=== PATIENT | female | born 1965 | race Caucasian/White ===

== ENCOUNTER 2024-03-15 18:59 | Inpatient (IN) | payer OTHER ==
[~2024-03-15] VITALS: Ht 167.6 cm; Wt 51.5 kg
[2024-03-15] MEDS ORDERED: CARV25TA PO (19:15)
[2024-03-15] MEDS ORDERED: ESTR1TAB PO (19:15)
[2024-03-15] MEDS ORDERED: LISI40TA4 PO (19:15)
[2024-03-15] MEDS ORDERED: hctz (19:15)
[2024-03-15] MEDS: METOPROLOL 5 MG/5 ML VIAL IV SCH (20:08)
[2024-03-15 20:14] LABS: BASO # 0.1 10^3/uL (0.0-0.2); BASO % 0.7 % (0.0-1.0); EOS # 0.1 10^3/uL (0.0-0.5); HEMATOCRIT 36.1 % (36.0-47.0); HEMOGLOBIN 12.2 g/dl (12.0-15.5); LYMPH # 2.2 10^3/uL (1.5-5.0); LYMPH % 31.7 % (24.0-44.0); MEAN CORPUSCULAR HEMOGLOBIN 31.4 pg (27.0-33.0); MEAN CORPUSCULAR HGB CONC 33.8 g/dl (32.0-36.5); MEAN CORPUSCULAR VOLUME 92.8 fl (80.0-96.0); MONO # 0.5 10^3/uL (0.0-0.8); MONO % 6.8 % (2.0-8.0); NEUTROPHILS # 4.1 10^3/uL (1.5-8.5); NEUTROPHILS % 59.5 % (36.0-66.0); PLATELET COUNT, AUTOMATED 206 10^3/uL (150-450); RED BLOOD COUNT 3.89 10^6/uL (4.00-5.40); WHITE BLOOD COUNT 6.8 10^3/uL (4.0-10.0)
[2024-03-15 20:27] LABS: D-DIMER QUANT 0.37 ug/mL (<0.5); INR 1.02; PARTIAL THROMBOPLASTIN TIME 27.6 SECONDS (24.8-34.2); PROTHROMBIN TIME 13.1 SECONDS (12.5-14.5)
[2024-03-15 20:40] LABS: CK-MB VALUE MASS 2.6 NG/ML (<3.6)
[2024-03-15 20:43] LABS: ALBUMIN 3.6 G/DL (3.2-5.2); ALKALINE PHOSPHATASE 41 U/L (46-116); ALT/SGPT 19 U/L (7.0-40); AST/SGOT 19 U/L (<34); BILIRUBIN,DIRECT 0.1 MG/DL (<0.4); BILIRUBIN,TOTAL 0.4 MG/DL (0.3-1.2); BLOOD UREA NITROGEN 11 MG/DL (9-23); CALCIUM LEVEL 8.5 MG/DL (8.5-10.1); CARBON DIOXIDE LEVEL 27 MMOL/L (20-31); CHLORIDE LEVEL 103 MMOL/L (98-107); CREATININE FOR GFR 0.52 MG/DL (0.55-1.30); GLOMERULAR FILTRATION RATE > 60.0 (>51); GLUCOSE, FASTING 90 MG/DL (60-100); MAGNESIUM LEVEL 1.8 MG/DL (1.8-2.4); PHOSPHORUS LEVEL 2.7 MG/DL (2.5-4.9); POTASSIUM SERUM 3.4 MMOL/L (3.5-5.1); SODIUM LEVEL 139 MMOL/L (136-145); TOTAL PROTEIN 6.1 G/DL (5.7-8.2)
[2024-03-15 20:45] LABS: FREE T4 0.68 NG/DL (0.89-1.76); THYROID STIMULATING HORMONE 4.839 uIU/ML (0.55-4.78)
[2024-03-15 20:46] LABS: CPK CREATINE PHOSPHOKINASE 103 U/L (34-145); MB/CK RELATIVE INDEX 2.52 (< OR =4)
[2024-03-15] MEDS: POTASSIUM CHLORIDE 10MEQ SR TABLET PO ONE ×2 (21:37→23:56)
[2024-03-15] MEDS: METOPROLOL TARTRATE 100MG TAB PO ONE (21:37)
[2024-03-15] MEDS ORDERED: HYDR-3490 PO (23:45)
[2024-03-15] MEDS ORDERED: HOME MED LIST COMPLETE! XX SCH (23:50)
[2024-03-15] MEDS: APIXABAN 5 MG TAB (ELIQUIS) PO SCH (23:55)
[2024-03-15] MEDS: MAG SULF 1GM/100ML (MAG RUN) 1 GM in IV 1 EA IV SCH (23:55)
[2024-03-16 00:34] LABS: HEMOGLOBIN A1c 4.8 % (4.0-6.0)
[2024-03-16 00:49] LABS: CHOLESTEROL RISK RATIO 1.52 (<5); HDL CHOLESTEROL 87.6 MG/DL (>40); MAGNESIUM LEVEL 1.6 MG/DL (1.8-2.4); NON-HDL-C 46.4 MG/DL
[2024-03-16] MEDS: diltiaZEM 125 MG in NS 100 ML IV SCH ×2 (01:07→17:41)
[2024-03-16 06:31] LABS: HEMATOCRIT 36.7 % (36.0-47.0); HEMOGLOBIN 11.9 g/dl (12.0-15.5); MEAN CORPUSCULAR HEMOGLOBIN 30.9 pg (27.0-33.0); MEAN CORPUSCULAR HGB CONC 32.4 g/dl (32.0-36.5); MEAN CORPUSCULAR VOLUME 95.3 fl (80.0-96.0); PLATELET COUNT, AUTOMATED 215 10^3/uL (150-450); RED BLOOD COUNT 3.85 10^6/uL (4.00-5.40); WHITE BLOOD COUNT 5.4 10^3/uL (4.0-10.0)
[2024-03-16 06:52] LABS: BLOOD UREA NITROGEN 7 MG/DL (9-23); CALCIUM LEVEL 7.8 MG/DL (8.5-10.1); CARBON DIOXIDE LEVEL 28 MMOL/L (20-31); CHLORIDE LEVEL 107 MMOL/L (98-107); CREATININE FOR GFR 0.49 MG/DL (0.55-1.30); GLOMERULAR FILTRATION RATE > 60.0 (>51); GLUCOSE, FASTING 98 MG/DL (60-100); MAGNESIUM LEVEL 2.2 MG/DL (1.8-2.4); POTASSIUM SERUM 4.3 MMOL/L (3.5-5.1); SODIUM LEVEL 141 MMOL/L (136-145)
[2024-03-16 07:36] VITALS: BP 136/77; TEMP 96.7; O2SAT 99
[2024-03-16] MEDS ORDERED: CARVedilol 12.5 MG TAB PO SCH ×2 (09:00→21:00)
[2024-03-16] MEDS ORDERED: METOPROLOL TARTRATE 100MG TAB PO SCH (09:00)
[2024-03-16] MEDS ORDERED: ELIQ5TAB PO (11:46)
[2024-03-16] MEDS: CARVedilol 12.5 MG TAB PO STA (11:55)
[2024-03-16 11:57] VITALS: BP 145/83; TEMP 96.2; O2SAT 100
[2024-03-16] MEDS ORDERED: XARE20TA PO (14:58)
[2024-03-16 18:17] VITALS: BP 138/76; TEMP 97.5; O2SAT 99
[2024-03-16] MEDS: dilTIAZem 30 MG TAB PO SCH (18:37)
[2024-03-16 19:14] VITALS: BP 139/91; TEMP 97.9; O2SAT 98
[2024-03-16 20:00] VITALS: O2SAT 98
[2024-03-16 23:27] VITALS: BP 137/80; TEMP 97.5; O2SAT 97
[2024-03-17] MEDS: dilTIAZem 25MG/5ML VIAL IV STA (01:15)
[2024-03-17] MEDS: dilTIAZem 30 MG TAB PO ONE (01:22)
[2024-03-17 03:51] VITALS: BP 113/69; TEMP 97.2; O2SAT 98
[2024-03-17] MEDS ORDERED: dilTIAZem 60 MG TAB PO SCH ×2 (06:00→14:00)
[2024-03-17 06:15] LABS: BLOOD UREA NITROGEN 10 MG/DL (9-23); CALCIUM LEVEL 7.8 MG/DL (8.5-10.1); CARBON DIOXIDE LEVEL 24 MMOL/L (20-31); CHLORIDE LEVEL 106 MMOL/L (98-107); CREATININE FOR GFR 0.45 MG/DL (0.55-1.30); GLOMERULAR FILTRATION RATE > 60.0 (>51); GLUCOSE, FASTING 94 MG/DL (60-100); MAGNESIUM LEVEL 1.9 MG/DL (1.8-2.4); SODIUM LEVEL 139 MMOL/L (136-145)
[2024-03-17 06:19] LABS: FREE T3 2.4 PG/ML (2.3-4.2); TOTAL T3 82.9 NG/DL (60.0-181.0)
[2024-03-17 07:14] VITALS: BP 148/83; TEMP 98.4; O2SAT 96
[2024-03-17 08:42] VITALS: BP 148/83
[2024-03-17] MEDS: dilTIAZem 60 MG TAB PO SCH (08:42)
[2024-03-17 12:00] VITALS: BP 143/82; TEMP 97; O2SAT 98
[2024-03-17] MEDS ORDERED: DILT30TA PO (14:36)
[2024-03-17] MEDS: RIVAROXABAN 20MG TAB (XARELTO) PO ONE (15:11)
[2024-03-17] MEDS ORDERED: dilTIAZem 30 MG TAB PO SCH (17:00)
== END 2024-03-17 15:34 | disposition left against medical advice (07) | DRG 201 ==
LOC: M ED 18:59 → M ED INP 22:10 → M PCU 03-16 18:04
PROVIDERS: ADMIT Internal Medicine; ATTEND Internal Medicine
PROC: B246ZZZ Ultrasonography of Right and Left Heart (ICD-10-PCS; principal; 2024-03-16)
DX: I48.91 Unspecified atrial fibrillation (principal); I10 Essential (primary) hypertension; R91.1 Solitary pulmonary nodule; E87.6 Hypokalemia; E83.42 Hypomagnesemia; I27.20 Pulmonary hypertension, unspecified; F10.20 Alcohol dependence, uncomplicated; E07.9 Disorder of thyroid, unspecified; Z79.818 Long term (current) use of other agents affecting estrogen receptors and estrogen levels; Z79.899 Other long term (current) drug therapy; Z88.1 Allergy status to other antibiotic agents; Z87.891 Personal history of nicotine dependence